=== PATIENT | female | born 1980 ===

== ENCOUNTER 2022-03-24 11:10 | Outpatient (REF) | payer BC, SELFPAY ==
[2022-03-25 12:39] LABS: Ur HCG Qualitative* Negative (Negative)
== END 2022-03-24 11:11 | disposition home or self-care (01) ==
LOC: NPINS 11:10
PROVIDERS: Visit Provider Nurse Practitioner
DX: C50.412 Malignant neoplasm of upper-outer quadrant of left female breast (principal); T66.XXXS Radiation sickness, unspecified, sequela
CPT/HCPCS: 81025